=== PATIENT | male | born 1975 | race Caucasian/White ===

== ENCOUNTER 2016-10-04 23:21 | Emergency (ER) | payer BC ==
[2016-10-04] MEDS ORDERED: HYDROmorphone 0.5 MG/0.5 ML Syringe IVPUSH ONE (23:39)
[2016-10-04] MEDS ORDERED: Metoclopramide 10 MG/2 ML SDV IVPUSH ONE (23:39)
--- NOTE | 2016-10-04 23:39 | EDM.PDOC ---
ED HPI GI/ABDOMINAL - General Chief Complaint: Abdominal Pain Stated Complaint: RIGHT SIDE PAIN Time Seen by Provider: 10/04/16 23:33 Source of Information: Reports: Patient History Limitations: Reports: No limitations - History of Present Illness INITIAL COMMENTS - FREE TEXT/NARRATIVE: 41-year-old male presents to the ED in the accompaniment of his . Patient states that he had been asleep for about 45 minutes when he woke from sleep with severe pain down in his right groin radiating down towards the right testicle. Pain was 10 out of 10 initially. It made him vomit. He also had further diarrhea stool. Patient has been ill since about 2200 hours on September 05. He developed nausea vomiting and diarrhea about the same time. He estimates he vomited over 20 time as well as had similar amount of stools loose and watery. No blood in either the emesis or the diarrhea. He doesn't believe that he was exposed to any potential foodborne illness or toxin. Associated intermittent abdominal cramping pain. At the time my assessment pain had eased up and he reports to be a for 5/10 down the right groin. He does report that he did have some diffuse back pain but cannot localize it to one side or the other the last few days. He quit his to just feeling ill. No one else in the family is sick. He usually enjoys good health.he has no allergies and takes no medications. No previous abdominal surgeries. He has not taken any antibiotics in the last month.has had chills and perhaps a low-grade fever so she with his current illness.he has had no history of previous kidney stones. Symptom Onset Date: 10/03/16 Symptom Onset Time: 22:00 Timing/Duration: Reports: Day(s):, Sudden onset Location: other (pain has been mostly periumbilical until tonight when it awoke him from sleep in the right lower quadrant and groin area.) Quality: Reports: cramping, stabbing Severity: severe (pain was 10 out of 10. Currently as 4/10. Mostly in the right groin.) Improves with: Denies: defecating, urinating, vomiting Worsens with: Denies: defecating Context: Denies: sick contact, bad/questionable food, out of country travel, recent surgery, recent trauma, lifting, activity/exercise, other Associated Symptoms: Reports: back pain (diffuse), groin pain (right side acutely tonight that awoke him from sleep.), diarrhea (severe loose watery stools high-volume stool loss.), fever/chills, loss of appetite, malaise, nausea /vomiting (attractable Pancho 20 times over the last a half). Denies: chest pain , testicular pain ( mid back pain which she equated to being ill.), shoulder pain, constipation, bloody stools Treatments MOTHER BABY RN: Reports: Other (see below) - Related Data Allergies/ADRs: Allergies Allergy/AdvReac Type Severity Reaction Status Date / Time No Known Allergies Allergy Verified 10/04/16 23:31 Home Meds: Home Meds Ondansetron [Zofran ODT] 4 mg PO Q4H PRN #2 tab.dis 10/05/16 [Rx] Ondansetron [Zofran ODT] 4 mg PO Q6H #6 tab.dis 10/05/16 [Rx] Tamsulosin HCl [Flomax] 0.4 mg PO DAILY #4 cap.er.24h 10/05/16 [Rx] oxyCODONE HCl/Acetaminophen [Percocet 5-325 mg Tablet] 1 - 2 each PO Q4H PRN # 15 tablet 10/05/16 [Rx] oxyCODONE HCl/Acetaminophen [Percocet 5-325 mg Tablet] 1 - 2 each PO Q4H PRN #5 tablet 10/05/16 [Rx] Past Medical History - Past Health History Medical/Surgical History: Denies Medical/Surgical History Social & Family History - Tobacco Use Smoking Status *Q: Never Smoker - Caffeine Use Caffeine Use: Reports: None - Alcohol Use Days Per Week of Alcohol Use: 0 - Recreational Drug Use Recreational Drug Use: No - Living Situation & Occupation Living situation: Reports: Occupation: employed ED ROS GENERAL - Review of Systems Review Of Systems: See Below Constitutional: Reports: chills, malaise, weakness, fatigue, decreased appetite (hasn't been able to eat in the last 24 hours), weight loss HEENT: Reports: No symptoms Respiratory: Reports: no symptoms Cardiovascular: Reports: No symptoms Endocrine: Reports: no symptoms GI/Abdominal: Reports: Abdominal pain (to men cramping abdominal pain), Diarrhea (large volume stool loss with yellow water.), Nausea, Vomiting ( intractable nausea and vomiting x24 hours.) : Reports: no symptoms Musculoskeletal: Reports: no symptoms Skin: Reports: no symptoms Neurological: Reports: no symptoms Psychiatric: Reports: No symptoms ED EXAM, GI/ABD - Physical Exam Exam: See Below Exam Limited By: No limitations General Appearance: alert, WD/WN, other (appears pallid and does appear ill.) Eyes: bilateral: normal appearance (no jaundice) Throat/Mouth: Other (tongue and oropharynx are very dry tongue is coated white.) Head: atraumatic, normocephalic Neck: normal inspection, supple, non-tender, full range of motion. No: lymphadenopathy (L), lymphadenopathy (R) Respiratory/Chest: no respiratory distress, lungs clear, normal breath sounds, no accessory muscle use Cardiovascular: regular rate, rhythm, no edema, no gallop, no murmur, no rub GI/Abdominal: soft, non tender, hypoactive bowel sounds, other (mild pain on palpation of the right groin. There is no evidence of a inguinal hernia.). No: distention, guarding, rebound, rigidity (Male) Exam: No hernia, Normal inspection Back Exam: normal inspection, full range of motion. No: CVA tenderness (L), CVA tenderness (R) Extremities: normal inspection, normal range of motion, non-tender, normal capillary refill Neurological: alert, oriented, CN II-XII intact, normal cognition, normal gait Psychiatric: normal affect, normal mood Skin Exam: Warm, Dry, Intact, Pallor (moderate pallor) Course - Vital Signs Last Recorded V/S: Last Vital Signs Temp 36.4 C 10/04/16 23:29 Pulse 65 10/05/16 01:15 Resp 16 10/05/16 01:15 BP 123/83 10/05/16 01:15 Pulse Ox 98 10/05/16 01:15 - Orders/Labs/Meds Orders: Active Orders 24 hr Category Date Time Status Abdomen Pelvis wo Cont [CT] Stat Exams 10/05/16 00:05 Taken Labs: Laboratory Tests 10/04/16 10/04/16 Range/Units 23:40 23:40 WBC 7.86 (4.23-9.07) K/mm3 RBC 5.17 (4.63-6.08) M/mm3 Hgb 16.1 (13.7-17.5) gm/L Hct 47.2 (40.1-51.0) % MCV 91.3 (79.0-92.2) fl MCH 31.1 (25.7-32.2) pg MCHC 34.1 (32.2-35.5) g/dl RDW Std Deviation 45.1 H (35.1-43.9) fL Plt Count 229 (163-337) K/mm3 MPV 10.6 (9.4-12.3) fl Neutrophils % (Manual) 61 H (40-60) % Band Neutrophils % 0 (0-10) % Lymphocytes % (Manual) 29 (20-40) % Atypical Lymphs % 0 % Monocytes % (Manual) 8 (2-10) % Eosinophils % (Manual) 1 (0.8-7.0) % Basophils % (Manual) 1 (0.2-1.2) Platelet Estimate Adequate Plt Morphology Comment Normal RBC Morph Comment Normal Sodium 142 (136-145) mEq/L Potassium 3.6 (3.5-5.1) mEq/L Chloride 106 (98-107) mEq/L Carbon Dioxide 24 (21-32) mEq/L Anion Gap 15.6 H (5-15) BUN 15 (7-18) mg/dL Creatinine 1.5 H (0.7-1.3) mg/dL Est Cr Clr Drug Dosing 70.41 mL/min Estimated GFR (MDRD) 51 (>60) mL/min BUN/Creatinine Ratio 10.0 L (14-18) Glucose 136 H (74-106) mg/dL Calcium 8.1 L (8.5-10.1) mg/dL Total Bilirubin 1.0 (0.2-1.0) mg/dL AST 13 L (15-37) U/L ALT 31 (16-63) U/L Alkaline Phosphatase 54 (46-116) U/L C-Reactive Protein 4.4 H* (<1.0) mg/dL Total Protein 7.1 (6.4-8.2) g/dl Albumin 3.7 (3.4-5.0) g/dl Globulin 3.4 gm/dL Albumin/Globulin Ratio 1.1 (1-2) Meds: Medications Discontinued Medications Generic Name Dose Route Start Last Admin Trade Name Freq PRN Reason Stop Dose Admin Hydromorphone HCl 0.5 mg 10/04/16 23:39 10/04/16 23:46 Dilaudid IVPUSH 10/04/16 23:40 0.5 mg ONETIME ONE Administration Dextrose/Sodium Chloride 1,000 mls @ 999 mls/hr 10/04/16 23:45 10/04/16 23:47 Dextrose 5%-Normal Saline IV 999 mls/hr ASDIRECTED VIJAY Administration Ketorolac Tromethamine 30 mg 10/04/16 23:45 10/04/16 23:46 Toradol IVPUSH 30 mg ONETIME VIJAY Administration Metoclopramide HCl 10 mg 10/04/16 23:39 10/04/16 23:46 Reglan IVPUSH 10/04/16 23:40 10 mg ONETIME ONE Administration Tamsulosin HCl 0.4 mg 10/05/16 00:53 10/05/16 01:15 Flomax PO 10/05/16 00:54 0.4 mg ONETIME ONE Administration - Radiology Interpretation Free Text/Narrative:: 41-year-old male presents the ED for assessment of acute severe right lower quadrant groin pain. Patient states he had been asleep for about 45 minutes when he awoke with severe pain in the right groin that made him vomit and he also had to have pain and the diarrhea stool. Pain was 10 out of 10. It is down to about 4 or 5/10 at this time. He stayed in the same place since its origin. Patient has been ill for over 28 hours with nausea vomiting and diarrhea with intractable nausea and vomiting greater than 20 times and some as well as large volume stool loss for similar period of time. No blood in either. Associated low -grade fever and chills. Has not been able to eat or drink or keep much down for the last 30 hours. On examination he does appear volume depleted and is mildly pallid. No jaundice. Lungs and heart sounds normal. Blood pressure is actually on the high side but is coming down to normal-- now 123/83.history is suggestive of renal colic. He has no history of renal stones in the past. Pain is in the right groin was suspect stone at the right UVJ. Plan IV D5 normal saline at open. Given Reglan 10 mg IV for nausea relief and Dilaudid 0.5 mg IV for pain relief with Toradol 30 mg IV for pain relief. I will await a urinalysis to see if his hematuria to warrant CT of the abdomen and pelvis. Clinically he has a benign abdominal examination with no evidence of peritonitis to suggest appendicitis etc. - Re-Assessments/Exams Free Text/Narrative Re-Assessment/Exam: 10/05/16 00:05 patient reports the pain is much improved stone to 1/10. He Temaril SIB voided. He is also quite volume depleted. Therefore going to have CT of the abdomen and pelvis performed without contrast as per renal protocol looking for a stone at the right UVJ. Patient made aware of this decision. 10/05/16 00:30: CT scan of the abdomen and pelvis confirms a obstructing stone in the right proximal ureter. It is approximately 3.54 mm at the right ureteropelvic junction resulting in mild right-sided hydronephrosis. No other stones are identified in the other kidney. Plan patient will be given Flomax 0.4 mg by mouth now. His lab tests reveal no significant dehydration with a anion gap of 15.6. Serum potassium and bicarbonate are maintained. He has completed a liter of IV fluids and feels better with no pain. He will be discharged home on Zofran 4 mg sublingual every 6 hours when necessary for relief of nausea vomiting. Percocet tabs 5-325 one or 2 every 4-6 hours necessary for pain relief x15 tabs. 5 will be provided to the ER carlin since he does not have a credit card does not have access to the ischemic machine. I will write a prescription for for further tablets of Flomax to be taken at bedtime for the next 4 days or until stone has passed. He will have a urinary strainer to strain urine to see if we can catch a stone .at the time of departure he was pain free. Departure - Departure Time of Disposition: 00:56 Disposition: Home, Self-Care 01 Condition: fair Clinical Impression: Gastroenteritis, Renal colic on right side Prescriptions: Ondansetron [Zofran ODT] 4 mg PO Q4H PRN #2 tab.dis PRN Reason: nasuea or vomiting relief. Ondansetron [Zofran ODT] 4 mg PO Q6H #6 tab.dis Tamsulosin HCl [Flomax] 0.4 mg PO DAILY #4 cap.er.24h oxyCODONE HCl/Acetaminophen [Percocet 5-325 mg Tablet] 1 - 2 each PO Q4H PRN #5 tablet PRN Reason: pain relief. oxyCODONE HCl/Acetaminophen [Percocet 5-325 mg Tablet] 1 - 2 each PO Q4H PRN # 15 tablet PRN Reason: pain relief. Instructions: Viral Gastroenteritis, Adult, Renal Colic Referrals: PCP,Unknown [Primary Care Provider] - Forms: ED Department Discharge Additional Instructions: evaluation in the emergency tonight in regards to awakening from sleep with severe pain in the right lower quadrant groin area. So should development of nausea vomiting. You have been ill with viral gastroenteritis with nausea vomiting and diarrhea for the last 30 hours as well. The history was compatible with the kidney stone of which you have no past history of. He was ever treated with IV D5 normal saline to restore hydration due to loss of fluids from repetitive vomiting and diarrhea over the last 30 hours. Lab tests were performed and reveal that you are not severely dehydrated only mildly so. Suggest trying to take Gatorade Powerade ideally 5 or 6 ounces sig per hour to provide rehydration as it sticks almost exactly the same as IV fluid replacement therapy. Once her on agree try crackers. Then advance to soup broth and turkey root rice turkey noodle soups etc. He is staying away from all-day products and no apple juice or grape juice until stools are formed back up. CT scan of the abdomen and pelvis was performed and confirmed a 3.5-4 mm stone in the upper portion of the ureter on the right side. The mean such test starting to drop down the ureter which is about 14 inches in length. Therefore further renal colic pain is going to occur but one cannot predict when. Typically these stones will drop down and pass into the bladder in the next few weeks and often in the next 3 days. It will therefore sent home with Flomax 0.4 mg once daily at bedtime for the next 4 nights as the initial toe was given in the ED. This is to try and help facilitate stone passage. Pain medication Percocet 5 325 mg strength one or 2 every 3-4 hours as necessary for pain relief if pain reoccurs. Zofran 4 mg under the tongue every 4 hours as necessary to relieve nausea or vomiting. Strain the urine once pain returns to confirm that the stone has finally pass through your system. Once the stone is in the urinary bladder no more pain will occur. Repeat amount without any difficulty. If the stone is not passed in the next 3 weeks then follow up with the urologist would be indicated. Of note this would be rare. - My Orders Last 24 Hours: My Active Orders 10/05/16 00:05 Abdomen Pelvis wo Cont [CT] Stat - Assessment/Plan Last 24 Hours: My Active Orders 10/05/16 00:05 Abdomen Pelvis wo Cont [CT] Stat
[2016-10-04] MEDS ORDERED: Ketorolac 30 MG/ML SDV IVPUSH SCH (23:45)
[2016-10-04] MEDS ORDERED: Dextrose 5%-0.9% NaCl 1,000 ML IV SCH (23:45)
[2016-10-04] MEDS ORDERED: Acetaminophen/oxyCODONE 325-5 MG Tab ONE (23:55)
[2016-10-04] MEDS ORDERED: Ondansetron 4 MG Tab.DIS ONE (23:55)
[2016-10-05] MEDS ORDERED: Tamsulosin 0.4 MG Cap.ER PO ONE (00:53)
[2016-10-05 01:21] VITALS: BP 123/83
--- NOTE | 2016-10-05 08:55 | CT ---
CT abdomen and pelvis Technique: Multiple axial sections were obtained from above the dome of the diaphragm inferiorly through the pubic symphysis. Intravenous and oral contrast not utilized. Study was performed as a ureteral stone protocol. Comparison: No previous abdominal imaging. Findings: Slightly prominent right renal pelvis is seen which is caused by an obstructing stone within the proximal right ureter near the UPJ. This stone measures about 5 mm in size. No other abnormal calcifications are seen within the kidneys or within the ureters. Visualized lung bases show nothing acute. Mild fatty infiltration noted within the liver. Spleen appears within normal limits. Adrenal glands show no nodule. Pancreas appears within normal limits. Aorta shows no aneurysmal dilatation. Appendix is seen which is normal. Fat-containing umbilical hernia noted. No pelvic mass or adenopathy is seen. Fat-containing bilateral inguinal hernias are noted. Bone window settings were reviewed which show disc space narrowing at L5-S1 with vacuum phenomena. Impression: 1. Small right sided obstructing calculus located slightly past the UPJ. 2. Other incidental findings as noted above. Diagnostic code #3 I agree with preliminary report issued by [facility] (preliminary report dictated on 10/05 16, 1:34 AM Central Time)
== END 2016-10-05 01:15 | disposition home or self-care (01) ==
LOC: JD.ED 23:21
DX: N20.0 Calculus of kidney (principal); K52.9 Noninfective gastroenteritis and colitis, unspecified
CPT/HCPCS: 36415; 74176; 80053; 85025; 86140; 96361; 96374; 96375; 99284; A9270; J1170; J1885; J2765; J7042

== ENCOUNTER 2017-03-01 09:01 | Emergency (ER) | payer BC ==
[2017-03-01] MEDS ORDERED: Ondansetron 4 MG/2 ML SDV IVPUSH ONE (09:36)
[2017-03-01] MEDS ORDERED: Famotidine 20 MG/2 ML SDV IVPUSH ONE (09:36)
--- NOTE | 2017-03-01 09:43 | EDM.PDOC ---
ED HPI GENERAL MEDICAL PROBLEM - General Chief Complaint: Cardiovascular Problem Stated Complaint: CHEST PAIN Time Seen by Provider: 03/01/17 09:07 Source of Information: Reports: Patient History Limitations: Reports: No Limitations - History of Present Illness INITIAL COMMENTS - FREE TEXT/NARRATIVE: The patient is a 41-year-old male with a chief complaint of chest pain and shortness of breath. The chest pain started about 15 minutes prior to arrival to the emergency department. It is located in the middle of his chest. It is sharp and also tight. Constant. Moderate severity. No clear provoking factors. Nonradiating. No history of similar symptoms. He's also been feeling short of breath for about a day. He states that last night he couldn't sleep all night because as he was falling asleep he would begin to feel short of breath and it would wake him up. No pain with inspiration. No cough. No lower extremity pain or swelling. No recent travel or immobilization. No history of similar symptoms previously. He has some mild nausea and had an episode of vomiting last night. Took Zofran that he had left from a prior prescription. Continues to feel nauseated. No abdominal pain. Mid-Sternal Chest Pain Score (Numeric/FACES): 4 - Related Data Allergies Allergy/AdvReac Type Severity Reaction Status Date / Time No Known Allergies Allergy Verified 03/01/17 09:08 Home Meds: Home Meds Ondansetron [Zofran ODT] 4 mg PO Q4H PRN #2 tab.dis 10/05/16 [Rx] hydrOXYzine HCl [Atarax] 25 mg PO BEDTIME PRN #12 tablet 03/01/17 [Rx] Past Medical History - Past Health History Medical/Surgical History: Denies Medical/Surgical History Cardiovascular History: Reports: Hypertension, Other (See Below) Other Cardiovascular History: not on meds currently for HTN. Gastrointestinal History: Reports: Other (See Below) Other Gastrointestinal History: bloody stools for 2 yrs. Genitourinary History: Reports: Renal Calculus Musculoskeletal History: Reports: Fracture - Infectious Disease History Infectious Disease History: Reports: Chicken Pox, Mumps Social & Family History - Tobacco Use Smoking Status *Q: Never Smoker Second Hand Smoke Exposure: No - Caffeine Use Caffeine Use: Reports: None - Alcohol Use Days Per Week of Alcohol Use: 0 - Recreational Drug Use Recreational Drug Use: No - Living Situation & Occupation Living situation: Reports: Occupation: Employed ED ROS GENERAL - Review of Systems Review Of Systems: See Below Constitutional: Denies: Fever HEENT: Reports: No Symptoms Respiratory: Reports: Shortness of Breath Cardiovascular: Reports: Chest Pain Endocrine: Reports: No Symptoms GI/Abdominal: Reports: Vomiting. Denies: Abdominal Pain : Reports: No Symptoms Musculoskeletal: Reports: No Symptoms Skin: Reports: No Symptoms Neurological: Reports: No Symptoms Psychiatric: Reports: No Symptoms Hematologic/Lymphatic: Reports: No Symptoms ED EXAM, GENERAL - Physical Exam Exam: See Below Exam Limited By: No Limitations General Appearance: Alert, WD/WN, No Apparent Distress Eye Exam: Bilateral Eye: PERRL Ears: Normal External Exam Nose: Normal Inspection Throat/Mouth: Normal Inspection, Normal Voice, No Airway Compromise Head: Atraumatic, Normocephalic Neck: Normal Inspection, Supple, Non-Tender, Full Range of Motion Respiratory/Chest: No Respiratory Distress, Lungs Clear, Normal Breath Sounds, No Accessory Muscle Use, Chest Non-Tender Cardiovascular: Normal Peripheral Pulses, Regular Rate, Rhythm, No Edema, No Murmur GI/Abdominal: Soft, Non-Tender, No Distention. No: Rebound Back Exam: Normal Inspection Extremities: Normal Inspection Neurological: Alert, Oriented, Normal Cognition Psychiatric: Normal Affect, Normal Mood Skin Exam: Warm, Dry, Intact, Normal Color Course - Vital Signs Last Recorded V/S: Last Vital Signs Temp 36.7 C 03/01/17 09:02 Pulse 84 03/01/17 09:02 Resp 20 03/01/17 09:02 BP 167/96 H 03/01/17 09:02 Pulse Ox 95 03/01/17 09:02 - Orders/Labs/Meds Orders: Active Orders 24 hr Category Date Time Status EKG 12 Lead [EKG Documentation Completion] [RC] STAT Care 03/01/17 09:22 Active Labs: Laboratory Tests 03/01/17 03/01/17 03/01/17 Range/Units 09:05 09:05 09:05 WBC 9.31 H (4.23-9.07) K/mm3 RBC 5.39 (4.63-6.08) M/mm3 Hgb 16.5 (13.7-17.5) gm/L Hct 48.4 (40.1-51.0) % MCV 89.8 (79.0-92.2) fl MCH 30.6 (25.7-32.2) pg MCHC 34.1 (32.2-35.5) g/dl RDW Std Deviation 44.7 H (35.1-43.9) fL Plt Count 257 (163-337) K/mm3 MPV 10.6 (9.4-12.3) fl Neut % (Auto) 76.1 H (34.0-67.9) % Lymph % (Auto) 16.2 L (21.8-53.1) % [place] % (Auto) 5.9 (5.3-12.2) % Eos % (Auto) 0.8 (0.8-7.0) Baso % (Auto) 0.2 (0.1-1.2) % Neut # (Auto) 7.09 H (1.78-5.38) K/mm3 Lymph # (Auto) 1.51 (1.32-3.57) K/mm3 [place] # (Auto) 0.55 (0.30-0.82) K/mm3 Eos # (Auto) 0.07 (0.04-0.54) K/mm3 Baso # (Auto) 0.02 (0.01-0.08) K/mm3 D-Dimer, Quantitative < 0.19 L (0.19-0.59) mg/L Sodium 141 (136-145) mEq/L Potassium 4.0 (3.5-5.1) mEq/L Chloride 105 (98-107) mEq/L Carbon Dioxide 25 (21-32) mEq/L Anion Gap 15.0 (5-15) BUN 11 (7-18) mg/dL Creatinine 1.4 H (0.7-1.3) mg/dL Est Cr Clr Drug Dosing 77.68 mL/min Estimated GFR (MDRD) 56 (>60) mL/min BUN/Creatinine Ratio 7.9 L (14-18) Glucose 176 H (74-106) mg/dL Calcium 9.3 (8.5-10.1) mg/dL Total Bilirubin 0.7 (0.2-1.0) mg/dL AST 13 L (15-37) U/L ALT 33 (16-63) U/L Alkaline Phosphatase 52 (46-116) U/L Troponin I < 0.017 (0.00-0.056) ng/mL B-Natriuretic Peptide (0-100) pg/mL Total Protein 7.7 (6.4-8.2) g/dl Albumin 4.3 (3.4-5.0) g/dl Globulin 3.4 gm/dL Albumin/Globulin Ratio 1.3 (1-2) 03/01/17 03/01/17 Range/Units 09:05 11:08 WBC (4.23-9.07) K/mm3 RBC (4.63-6.08) M/mm3 Hgb (13.7-17.5) gm/L Hct (40.1-51.0) % MCV (79.0-92.2) fl MCH (25.7-32.2) pg MCHC (32.2-35.5) g/dl RDW Std Deviation (35.1-43.9) fL Plt Count (163-337) K/mm3 MPV (9.4-12.3) fl Neut % (Auto) (34.0-67.9) % Lymph % (Auto) (21.8-53.1) % [place] % (Auto) (5.3-12.2) % Eos % (Auto) (0.8-7.0) Baso % (Auto) (0.1-1.2) % Neut # (Auto) (1.78-5.38) K/mm3 Lymph # (Auto) (1.32-3.57) K/mm3 [place] # (Auto) (0.30-0.82) K/mm3 Eos # (Auto) (0.04-0.54) K/mm3 Baso # (Auto) (0.01-0.08) K/mm3 D-Dimer, Quantitative (0.19-0.59) mg/L Sodium (136-145) mEq/L Potassium (3.5-5.1) mEq/L Chloride (98-107) mEq/L Carbon Dioxide (21-32) mEq/L Anion Gap (5-15) BUN (7-18) mg/dL Creatinine (0.7-1.3) mg/dL Est Cr Clr Drug Dosing mL/min Estimated GFR (MDRD) (>60) mL/min BUN/Creatinine Ratio (14-18) Glucose (74-106) mg/dL Calcium (8.5-10.1) mg/dL Total Bilirubin (0.2-1.0) mg/dL AST (15-37) U/L ALT (16-63) U/L Alkaline Phosphatase (46-116) U/L Troponin I < 0.017 (0.00-0.056) ng/mL B-Natriuretic Peptide < 15 (0-100) pg/mL Total Protein (6.4-8.2) g/dl Albumin (3.4-5.0) g/dl Globulin gm/dL Albumin/Globulin Ratio (1-2) Meds: Medications Discontinued Medications Generic Name Dose Route Start Last Admin Trade Name Freq PRN Reason Stop Dose Admin Famotidine 40 mg 03/01/17 09:36 03/01/17 09:48 Pepcid IVPUSH 03/01/17 09:37 40 mg ONETIME ONE Administration Famotidine Confirm 03/01/17 09:52 03/01/17 09:54 Pepcid Administered 03/01/17 09:53 Not Given Dose 20 mg .ROUTE .STK-MED ONE Hydroxyzine HCl 50 mg 03/01/17 10:31 03/01/17 10:52 Atarax PO 03/01/17 10:32 50 mg ONETIME ONE Administration Ondansetron HCl 4 mg 03/01/17 09:36 03/01/17 09:46 Zofran IVPUSH 03/01/17 09:37 4 mg ONETIME ONE Administration - Re-Assessments/Exams Free Text/Narrative Re-Assessment/Exam: 03/01/17 09:42 EKG shows normal sinus rhythm, no ST or T-wave abnormality, no evidence of acute ischemia or arrhythmia. 03/01/17 11:50 Chest x-ray shows normal cardiac silhouette. Labs, including BNP and troponin are negative. He has had normal oxygen saturations throughout his ED stay with no murmurs mostly in the mid to high 90s. His initial labs are otherwise normal. His heart score is 0 and he is perc rule negative chest pain started 15 minutes prior to emergency department arrival. Anticipate discharge home with primary care follow-up. Discussed return precautions. Patient also notes that he 's had a lot of stress and anxiety lately and wonders if this could be causing his symptoms. I explained that that is a diagnosis of exclusion, but may be possibly explaining his symptoms. Encouraged him to follow up with his primary doctor for further discussion and care. Departure - Departure Time of Disposition: 12:31 Disposition: Home, Self-Care 01 Clinical Impression: Shortness of breath Chest pain Qualifiers: Chest pain type: other chest pain Qualified Code(s): R07.89 - Other chest pain Prescriptions: hydrOXYzine HCl [Atarax] 25 mg PO BEDTIME PRN #12 tablet PRN Reason: insomnia or anxiety Referrals: Armond Gardner Jr, MD [Primary Care Provider] - Forms: ED Department Discharge Additional Instructions: 1. Follow up with your primary doctor as needed for further care 2. Take hydroxyzine as needed for anxiety or trouble sleeping 3. Return to the ED if you have ongoing or worsening chest pain, shortness of breath, or any other concerning symptoms - My Orders Last 24 Hours: My Active Orders 03/01/17 09:22 EKG 12 Lead [EKG Documentation Completion] [RC] STAT - Assessment/Plan Last 24 Hours: My Active Orders 03/01/17 09:22 EKG 12 Lead [EKG Documentation Completion] [RC] STAT
[2017-03-01] MEDS ORDERED: Famotidine 20 MG/2 ML SDV ONE (09:52)
[2017-03-01] MEDS ORDERED: hydrOXYzine HCl 25 MG Tab PO ONE (10:31)
--- NOTE | 2017-03-01 11:23 | CR ---
Chest: Portable view of the chest was obtained. Comparison: Previous chest x-ray of 05/09/15. Slight atelectasis is noted within both lung bases. Lungs otherwise are clear. Heart size is normal. Upper mediastinum is within normal limits for portable technique. Bony structures are grossly intact. Impression: 1. Mild bibasilar atelectasis. Nothing acute is otherwise seen on portable chest x-ray. Diagnostic code #2
[2017-03-01 13:04] VITALS: BP 127/84
== END 2017-03-01 12:40 | disposition home or self-care (01) ==
LOC: JD.ED 09:01
DX: R07.89 Other chest pain (principal); R06.02 Shortness of breath; I10 Essential (primary) hypertension; Z87.442 Personal history of urinary calculi
CPT/HCPCS: 36415; 71010; 80053; 83880; 84484; 85025; 85379; 93005; 96374; 96375; 99285; A9270; J2405; 99284

== ENCOUNTER 2017-06-23 07:08 | Emergency (ER) | payer BC ==
[2017-06-23] MEDS ORDERED: Ondansetron 4 MG/2 ML SDV IVPUSH ONE (07:40)
[2017-06-23] MEDS ORDERED: Sodium Chloride 0.9% 10 ML Syringe FLUSH PRN (07:40)
[2017-06-23] MEDS ORDERED: Ketorolac 30 MG/ML SDV IVPUSH ONE (07:42)
[2017-06-23] MEDS ORDERED: HYDROmorphone 1 MG/ML Syringe IVPUSH ONE (07:42)
[2017-06-23 07:43] VITALS: BP 138/99
[2017-06-23] MEDS ORDERED: Sodium Chloride 0.9% 1,000 ML IV SCH (07:45)
--- NOTE | 2017-06-23 07:48 | EDM.PDOC ---
ED HPI GENERAL MEDICAL PROBLEM - General Chief Complaint: Abdominal Pain Stated Complaint: LOW ABDOMINAL PAIN Time Seen by Provider: 06/23/17 07:36 Source of Information: Reports: Patient History Limitations: Reports: No Limitations - History of Present Illness INITIAL COMMENTS - FREE TEXT/NARRATIVE: The patient presents with right flank, right groin and right lower abdominal pain. This started about midnight last night. He has nausea and vomiting. He has no fever or chills. He has no chest pain or shortness of breath. He has no dysuria or hematuria. He has a history of kidney stones. He still has his gallbladder and appendix. Onset: Sudden Duration: Hour(s): (midnight last night) Location: Reports: Abdomen, Back Quality: Reports: Sharp Severity: Severe Improves with: Reports: None Worsens with: Reports: None Associated Symptoms: Reports: Nausea/Vomiting. Denies: Chest Pain, Fever/Chills , Shortness of Breath Right Lower Abdominal Pain Score (Numeric/FACES): 10 - Related Data Allergies Allergy/AdvReac Type Severity Reaction Status Date / Time No Known Allergies Allergy Verified 06/23/17 07:43 Home Meds: Home Meds Tamsulosin HCl [Flomax] 0.4 mg PO DAILY #10 cap.er.24h 06/23/17 [Rx] oxyCODONE HCl/Acetaminophen [Percocet 5-325 mg Tablet] 1 - 2 each PO Q6HR PRN # 20 tablet 06/23/17 [Rx] Past Medical History - Past Health History Medical/Surgical History: Denies Medical/Surgical History Cardiovascular History: Reports: Hypertension, Other (See Below) Other Cardiovascular History: not on meds currently for HTN. Gastrointestinal History: Reports: Other (See Below) Other Gastrointestinal History: bloody stools for 2 yrs. Genitourinary History: Reports: Renal Calculus Musculoskeletal History: Reports: Fracture - Infectious Disease History Infectious Disease History: Reports: Chicken Pox, Mumps Social & Family History - Tobacco Use Smoking Status *Q: Never Smoker Second Hand Smoke Exposure: No - Caffeine Use Caffeine Use: Reports: None - Alcohol Use Days Per Week of Alcohol Use: 0 - Recreational Drug Use Recreational Drug Use: No - Living Situation & Occupation Living situation: Reports: Occupation: Employed ED ROS GENERAL - Review of Systems Review Of Systems: See Below Constitutional: Reports: No Symptoms HEENT: Reports: No Symptoms Respiratory: Reports: No Symptoms Cardiovascular: Reports: No Symptoms Endocrine: Reports: No Symptoms GI/Abdominal: Reports: Abdominal Pain, Nausea, Vomiting. Denies: Diarrhea : Reports: Flank Pain (Right) Skin: Reports: No Symptoms ED EXAM, GI/ABD - Physical Exam Exam: See Below Exam Limited By: No Limitations General Appearance: Alert, Mild Distress Ears: Normal External Exam Nose: Normal Inspection Head: Atraumatic, Normocephalic Neck: Normal Inspection Respiratory/Chest: No Respiratory Distress, Lungs Clear, Normal Breath Sounds Cardiovascular: Regular Rate, Rhythm, No Edema, No Murmur GI/Abdominal Exam: Soft, Non-Tender, No Organomegaly, No Mass Back Exam: Normal Inspection Extremities: Normal Inspection Neurological: Alert, Oriented, No Motor/Sensory Deficits Course - Vital Signs Last Recorded V/S: Last Vital Signs Temp 97.8 F 06/23/17 07:38 Pulse 72 06/23/17 07:38 Resp 18 06/23/17 07:38 BP 138/99 H 06/23/17 07:38 Pulse Ox 100 06/23/17 07:38 - Orders/Labs/Meds Orders: Active Orders 24 hr Category Date Time Status Peripheral IV Care [RC] . DIRECTED Care 06/23/17 07:41 Active Abdomen Pelvis wo Cont [CT] Stat Exams 06/23/17 07:40 Taken UA W/MICROSCOPIC [URIN] Stat Lab 06/23/17 09:40 Results Sodium Chloride 0.9% [Normal Saline] 1,000 ml Med 06/23/17 07:45 Active IV ASDIRECTED Sodium Chloride 0.9% [Saline Flush] Med 06/23/17 07:40 Active 10 ml FLUSH ASDIRECTED PRN ED Antiemetic Medication Reflex [OM.PC] Stat Oth 06/23/17 07:40 Ordered Peripheral IV Insertion Adult [OM.PC] Stat Oth 06/23/17 07:40 Ordered Medication Orders Sodium Chloride (Normal Saline) 1,000 mls @ 125 mls/hr IV ASDIRECTED VIJAY Last Admin: 06/23/17 08:05 Dose: 125 mls/hr Sodium Chloride (Saline Flush) 10 ml FLUSH ASDIRECTED PRN PRN Reason: Keep Vein Open Last Admin: 06/23/17 08:05 Dose: 10 ml Labs: Laboratory Tests 1106/23/17 06/23/17 Range/Units 07:50 07:50 09:40 WBC 16.21 H (4.23-9.07) K/mm3 RBC 5.22 (4.63-6.08) M/mm3 Hgb 15.9 (13.7-17.5) gm/L Hct 46.2 (40.1-51.0) % MCV 88.5 (79.0-92.2) fl MCH 30.5 (25.7-32.2) pg MCHC 34.4 (32.2-35.5) g/dl RDW Std Deviation 43.3 (35.1-43.9) fL Plt Count 258 (163-337) K/mm3 MPV 10.7 (9.4-12.3) fl Neut % (Auto) 84.1 H (34.0-67.9) % Lymph % (Auto) 6.7 L (21.8-53.1) % [place] % (Auto) 8.4 (5.3-12.2) % Eos % (Auto) 0.2 L (0.8-7.0) Baso % (Auto) 0.2 (0.1-1.2) % Neut # (Auto) 13.63 H (1.78-5.38) K/mm3 Lymph # (Auto) 1.08 L (1.32-3.57) K/mm3 [place] # (Auto) 1.36 H (0.30-0.82) K/mm3 Eos # (Auto) 0.04 (0.04-0.54) K/mm3 Baso # (Auto) 0.04 (0.01-0.08) K/mm3 Manual Slide Review Abnormal smear Sodium 140 (136-145) mEq/L Potassium 3.8 (3.5-5.1) mEq/L Chloride 104 (98-107) mEq/L Carbon Dioxide 23 (21-32) mEq/L Anion Gap 16.8 H (5-15) BUN 17 (7-18) mg/dL Creatinine 1.7 H (0.7-1.3) mg/dL Est Cr Clr Drug Dosing 57.85 mL/min Estimated GFR (MDRD) 44 (>60) mL/min BUN/Creatinine Ratio 10.0 L (14-18) Glucose 166 H (74-106) mg/dL Calcium 9.6 (8.5-10.1) mg/dL Total Bilirubin 0.6 (0.2-1.0) mg/dL AST 18 (15-37) U/L ALT 39 (16-63) U/L Alkaline Phosphatase 63 (46-116) U/L Total Protein 7.6 (6.4-8.2) g/dl Albumin 4.2 (3.4-5.0) g/dl Globulin 3.4 gm/dL Albumin/Globulin Ratio 1.2 (1-2) Lipase 124 (73-393) U/L Urine Color Dark yellow (Yellow) Urine Appearance Clear (Clear) Urine pH 6.0 (5.0-8.0) Ur Specific [place] > or = 1.030 (1.005-1.030) Urine Protein 1+ H (Negative) Urine Glucose (UA) Negative (Negative) Urine Ketones Trace H (Negative) Urine Occult Blood 3+ H (Negative) Urine Nitrite Negative (Negative) Urine Bilirubin Negative (Negative) Urine Urobilinogen 0.2 (0.2-1.0) Ur Leukocyte Esterase Negative (Negative) Meds: Medications Generic Name Dose Route Start Last Admin Trade Name Freq PRN Reason Stop Dose Admin Sodium Chloride 1,000 mls @ 125 mls/hr 06/23/17 07:45 06/23/17 08:05 Normal Saline IV 125 mls/hr ASDIRECTED VIJAY Administration Sodium Chloride 10 ml 06/23/17 07:40 06/23/17 08:05 Saline Flush FLUSH 10 ml ASDIRECTED PRN Administration Keep Vein Open Discontinued Medications Generic Name Dose Route Start Last Admin Trade Name Freq PRN Reason Stop Dose Admin Hydromorphone HCl 1 mg 06/23/17 07:42 06/23/17 08:03 Dilaudid IVPUSH 06/23/17 07:43 1 mg ONETIME ONE Administration Hydromorphone HCl 0.5 mg 06/23/17 09:13 06/23/17 09:23 Dilaudid IVPUSH 06/23/17 09:14 0.5 mg ONETIME ONE Administration Ketorolac Tromethamine 30 mg 06/23/17 07:42 06/23/17 08:04 Toradol IVPUSH 06/23/17 07:43 30 mg ONETIME ONE Administration Ondansetron HCl 4 mg 06/23/17 07:40 06/23/17 08:02 Zofran IVPUSH 06/23/17 07:41 4 mg ONETIME ONE Administration - Re-Assessments/Exams Free Text/Narrative Re-Assessment/Exam: 06/23/17 07:47 I ordered an IV NS 125mL/hr, zofran 4mg IV, dillaudid 1mg IV, toradol 30mg IV, labs, UA and a CT of his abdomen and pelvis. 06/23/17 10:18 His WBC is elevated at 16.21. His anion gap was elevated at 16.8. His creatinine was elevated at 1.7. His creatinine was 1.4 last time he was in. His glucose is 166. His UA shows blood but no UTI. The CT shows moderately obstructing 7mm X 5mm distal right ureteral calculus. Right nephrolithiasis. Non obstructing right ureteral calculus measuring 2mm and a 2mm stone in the right kidney. The patient had more pain so I ordered more dilaudid. I will get him on flomax and something for pain. He had a stone 9 months ago and at times he would get pain and some blood in his urine. I feel he did not pass it yet. It is moving now. I feel he needs to go see urology. I have put a consult in and they will call him with a time. Departure - Departure Time of Disposition: 10:25 Disposition: Home, Self-Care 01 Condition: Good Clinical Impression: Renal colic on right side, Kidney stone on right side, Ureteral calculi - Discharge Information Prescriptions: oxyCODONE HCl/Acetaminophen [Percocet 5-325 mg Tablet] 1 - 2 each PO Q6HR PRN # 20 tablet PRN Reason: Pain Tamsulosin HCl [Flomax] 0.4 mg PO DAILY #10 cap.er.24h Referrals: Armond Gardner Jr, MD [Primary Care Provider] - Forms: ED Department Discharge Additional Instructions: I have put a referral for a urologist at [facility] in [place]. They are checking when they can get you in and they will call you. If you do not hear from them by this afternoon please call . Take the flomax daily. Take the percocet as needed for pain. Please return if you are worse. - My Orders Last 24 Hours: My Active Orders 06/23/17 07:40 Abdomen Pelvis wo Cont [CT] Stat Sodium Chloride 0.9% [Saline Flush] 10 ml FLUSH ASDIRECTED PRN ED Antiemetic Medication Reflex [OM.PC] Stat Peripheral IV Insertion Adult [OM.PC] Stat 06/23/17 07:41 Peripheral IV Care [RC] . DIRECTED 06/23/17 07:45 Sodium Chloride 0.9% [Normal Saline] 1,000 ml IV ASDIRECTED 06/23/17 09:40 UA W/MICROSCOPIC [URIN] Stat - Assessment/Plan Last 24 Hours: My Active Orders 06/23/17 07:40 Abdomen Pelvis wo Cont [CT] Stat Sodium Chloride 0.9% [Saline Flush] 10 ml FLUSH ASDIRECTED PRN ED Antiemetic Medication Reflex [OM.PC] Stat Peripheral IV Insertion Adult [OM.PC] Stat 06/23/17 07:41 Peripheral IV Care [RC] . DIRECTED 06/23/17 07:45 Sodium Chloride 0.9% [Normal Saline] 1,000 ml IV ASDIRECTED 06/23/17 09:40 UA W/MICROSCOPIC [URIN] Stat
[2017-06-23] MEDS ORDERED: HYDROmorphone 0.5 MG/0.5 ML Syringe IVPUSH ONE (09:13)
--- NOTE | 2017-06-23 11:48 | CT ---
CT abdomen and pelvis Technique: Multiple axial sections were obtained from above the dome of the diaphragm inferiorly through the pubic symphysis. Intravenous and oral contrast was not utilized. Study has been performed as a ureteral stone protocol. Comparison: Previous study of 10/05/16. Findings: Right-sided hydronephrosis is seen with dilated ureter down to the midpelvis. This ureteral dilatation is caused by 5.6 mm obstructing stone. No additional calcification is seen along the course of the right or left ureters. Several minimal nonobstructing calculi are seen within the right kidney. No nonobstructing calculi are seen within the left kidney. Mild fatty infiltration is seen within the liver. Spleen size is normal. Small portion of the visualized lung bases shows nothing acute. Adrenal glands show no nodule. Pancreas is within normal limits. Aorta shows no aneurysmal dilatation. No retroperitoneal adenopathy is seen. Appendix is seen which appears normal. No pelvic mass or adenopathy is seen. No free fluid or inflammatory change is seen. No bowel dilatation is seen. Bone window settings were reviewed shows vacuum disc phenomena and disc space narrowing at L5-S1. Impression: 1. 5.6 mm obstructing stone within the right ureter at the level of the midpelvis. 2. Several small nonobstructing calculi within the right kidney. 3. Mild fatty infiltration within the liver. Other incidental findings. Diagnostic code #3
== END 2017-06-23 11:00 | disposition home or self-care (01) ==
LOC: JD.ED 07:08
DX: N20.2 Calculus of kidney with calculus of ureter (principal); I10 Essential (primary) hypertension; Z87.442 Personal history of urinary calculi; Z79.899 Other long term (current) drug therapy
CPT/HCPCS: 36415; 74176; 80053; 81001; 83690; 85025; 96361; 96374; 96375; 96376; 99284; J1170; J1885; J2405; J7040; J7050

== ENCOUNTER 2021-11-26 06:00 | Emergency (ER) | payer BC, OTHER ==
[2021-11-26] MEDS ORDERED: Ketorolac 15 MG/ML SDV IVPUSH ONE (06:26)
[2021-11-26] MEDS ORDERED: Ondansetron 4 MG/2 ML SDV IVPUSH ONE (06:26)
[2021-11-26] MEDS ORDERED: Sodium Chloride 0.9% 10 ML SDV FLUSH ONE (06:40)
[2021-11-26] MEDS ORDERED: Iopamidol 612 MG/ML 100 ML Bottle IVPUSH ONE (06:40)
[2021-11-26] MEDS ORDERED: Lactated Ringers 1,000 ML IV ONE (07:35)
[2021-11-26 09:26] VITALS: BP 118/87; PULSE 66
== END 2021-11-26 09:26 | disposition home or self-care (01) ==
LOC: JD.ED 06:00
DX: R10.31 Right lower quadrant pain (principal); I10 Essential (primary) hypertension; Z79.899 Other long term (current) drug therapy
CPT/HCPCS: 36415; 74177; 80053; 81001; 83690; 85025; 96374; 96375; 99284; J1885; J2405; J3490; J7120; Q9967